=== PATIENT | male | born 1950 | race Hispanic/Latino ===

== ENCOUNTER → 2024-05-19 | Day surgery (SDC) | payer MEDICARE, OTHER ==
[2024-05-16 09:24] LABS: BASOPHILS % 0.4 % (0.0-1.0); EOSINOPHILS # (AUTO) 0.1 (0.0-0.4); EOSINOPHILS % 1.6 % (0.0-6.0); HEMATOCRIT 41.8 % (38.2-49.6); HEMOGLOBIN 13.6 g/dL (14.0-18.0); LYMPHOCYTES # (AUTO) 1.3 (1.0-3.2); LYMPHOCYTES % 26.6 % (18.0-39.1); MEAN CORPUSCULAR HEMOGLOBIN 32.2 pg (28-32); MEAN CORPUSCULAR HGB CONC 32.5 g/dL (31-35); MEAN CORPUSCULAR VOLUME 98.8 fL (81-99); MONOCYTES # (AUTO) 0.4 (0.2-0.8); MONOCYTES % 8.6 % (4.4-11.3); NEUTROPHILS # (AUTO) 3.1 (2.1-6.9); NEUTROPHILS % 62.6 % (38.7-80.0); PLATELET COUNT 220 x10e3/uL (140-360); RED BLOOD COUNT 4.23 x10e6/uL (4.3-5.7); RED CELL DISTRIBUTION WIDTH 12.3 % (11.7-14.4); WHITE BLOOD COUNT 4.89 x10e3/uL (4.8-10.8)
[2024-05-16 11:37] LABS: ALBUMIN 4.2 g/dL (3.5-5.0); ALBUMIN/GLOBULIN RATIO 1.6 (0.8-2.0); ANION GAP 13.4 mmol/L (8-16); BILIRUBIN,TOTAL 0.6 mg/dL (0.2-1.2); CALCIUM 9.5 mg/dL (8.4-10.2); CREATININE, SERUM 0.92 mg/dL (0.72-1.25); POTASSIUM 4.4 mmol/L (3.5-5.1); TOTAL PROTEIN 6.8 g/dL (6.5-8.1)
[~2024-05-19] MED LIST: ACETAMINOPHEN 1000 MG/100 ML 100 ML IV ONE; ASPIRIN81 MG PO; ATORVASTATIN CA20 MG PO; CALCIUM CITRAT250 MG PO; DEXAMETHASONE SOD PHOS INJ 4 MG/ML SDV ONE; FENTANYL CITRATE/PF 100MCG/2 ML INJ ONE; FLOMAX0.4 MG PO; LEVOFLOXACIN250 MG PO; LIDOCAINE HCL 2% LOCAL INJ 5 ML SDV VIAL INJ ONE; MAGNESIUM400 MG PO; MULTI-VITAMIN1 EACH PO; NEURONTIN100 MG PO; ONDANSETRON HCL INJ 2MG/ML 2ML 2 MG/ML VIAL ONE; PROPOFOL IV EMULSION 10 MG/ML 20 ML VIAL ONE
[2024-05-19] MEDS: CEFTRIAXONE 1 GM VIAL ONE (06:26)
[2024-05-19] MEDS: GENTAMICIN 80MG/NS 100 ML 200 ML IV ONE (06:27)
[2024-05-19] MEDS: LACTATED RINGER'S 1,000 ML ONE (06:28)
[2024-05-19] MEDS: ACETAMINOPHEN/CODEINE 300MG - 30MG TAB ONE (09:30)
[2024-05-19] MEDS: PHENAZOPYRIDINE HCL 100 MG TAB ONE (09:30)
[2024-05-19 10:05] VITALS: BP 147/86; PULSE 58; RESP 16; O2SAT 98
[2024-05-20 05:14] LABS: CALCIUM 9.7 mg/dL (8.6-10.2)
== END | disposition home or self-care (01) ==
LOC: OR 05:44
PROVIDERS: ATTEND Urology
DX: N21.0 Calculus in bladder (principal); N35.819 Other urethral stricture, male, unspecified site; Z01.810 Encounter for preprocedural cardiovascular examination; Z01.812 Encounter for preprocedural laboratory examination; Z79.82 Long term (current) use of aspirin; Z79.899 Other long term (current) drug therapy; Z85.46 Personal history of malignant neoplasm of prostate; Z98.890 Other specified postprocedural states
CPT/HCPCS: 36415; 52005; 52318; 74420; 80053; 83970; 84550; 85025; 88300; 93005; C1758; J0131; J0696; J1100; J1580; J2003; J2405; J2704; J3010; J7121